=== PATIENT | male | born 1945 | race Caucasian/White ===

== ENCOUNTER 2018-08-27 17:43 | Observation (INO) ==
[2018-08-27] MEDS ORDERED: Aspirin 81 MG TAB.CHEW PO STA (18:08)
--- NOTE | 2018-08-27 18:28 | Emergency Department Note ---
START Narrative - START START: Patient seen and evaluated on arrival he is having having intermittent chest pains been going for a week. He has had a stent placed times one been several years ago. Pain seems to be with exertion. He has no pain currently. He does take aspirin. Were noted a cardiac workup on him and then he will be signed out to the evening ER physician Dr. Pena for further management disposition.
[2018-08-27 18:33] LABS: Basophils % 0.6 %; Eosinophils # 0.1 K/mcL (0.0-0.6); Eosinophils % 1.5 %; Hematocrit 42.2 % (37.5-50.1); Hemoglobin 14.3 g/dL (12.9-16.9); Immature Granulocytes % 0.3 % (0-4); Lymphocytes # 1.4 K/mcL (0.6-4.6); Lymphocytes % 21.6 %; Mean Corpuscular HGB Conc 33.9 g/dL (31.6-35.5); Mean Corpuscular Hemoglobin 29.4 pg (28.0-33.3); Mean Corpuscular Volume 86.8 fL (83.0-100.0); Mean Platelet Volume 9.6 fL (9.4-12.4); Monocytes # 0.9 K/mcL (0.0-1.3); Monocytes % 13.7 %; Platelet Count 232 K/mcL (140-400); Red Blood Count 4.86 M/mcL (4.19-5.50); Segmented Neutrophils % 62.3 %
[2018-08-27 18:47] LABS: Calcium 9.4 mg/dL (8.6-10.3); Potassium 3.9 mEq/L (3.5-5.1)
[2018-08-27 18:51] LABS: Troponin I 0.46 ng/mL (< 0.04)
--- NOTE | 2018-08-27 19:51 | Emergency Department Note ---
Disposition Clinical Impression: NSTEMI (non-ST elevated myocardial infarction) Chest pain Qualifiers: Chest pain type: unspecified Qualified Code(s): R07.9 - Chest pain, unspecified Disposition: Admitted As Inpatient Condition: Fair Referrals: Jet Ty MD [Primary Care Provider] - Forms: ED Satisfaction Letter Chest Pain HPI - General Chief Complaint: ED Chest Pain Stated Complaint: Chest pressure Time Seen by Provider: 08/27/18 18:07 Source: patient Mode of arrival: ambulatory Limitations: no limitations Vital Signs Reviewed: Yes Nursing Notes Reviewed: Yes - History of Present Illness HPI Narrative: 73-year-old male with known coronary artery disease status post stent proximally 7 years ago presents for evaluation of chest pain. Patient describes as chest tightness. Notes it to be occurring over the past week. Notes it to occur daily. Patient notes it to occur multiple times a day which prompted his ED visit today. Patient describes chest pain with exertion. Radiation down both arms. No nausea vomiting or diaphoresis. Does appear to resolve approximately 10 minutes upon rest. Patient denies abdominal pain. Denies any shortness of breath or cough. No fevers. Denies any blood in the stool or dark tarry stools. Patient also has history of hypertension and diabetes. Severity scale (1-10): 0 - Related Data Home Medications Medication Instructions Recorded Confirmed Aspirin 08/25/17 Lipitor 08/25/17 Nitroglycerin 08/25/17 Vitamin D 08/25/17 Zetia 08/25/17 Previous Rx's Medication Instructions Recorded Acetaminophen [Tylenol] 500 mg PO Q6HR PRN #20 tablet 08/25/17 Azithromycin [Azithromycin 6-Tab 250 mg PO PER PKG DI #6 tab 08/25/17 Pack] Benzonatate [Tessalon] 200 mg PO TID PRN #20 capsule 08/25/17 Allergies Allergy/AdvReac Type Severity Reaction Status Date / Time No Known Allergies Allergy Verified 08/25/17 14:46 All systems ED: reviewed and negative except as stated. Constitutional: Denies: fever Cardiovascular: Reports: chest pain Respiratory: Denies: cough, dyspnea Gastrointestinal: Denies: abdominal pain, nausea, vomiting Chest Pain PMH - Past Medical History Medical history: Reports: diabetes, hyperlipidemia Psychiatric history: Reports: no psych history - Social History Smoking Status: Never smoker Alcohol use: Reports: none Drug use: Reports: none Physical Exam - General Limitations: no limitations General appearance: alert, in no apparent distress - Head Head exam: atraumatic, normocephalic, normal inspection - Eye Eye exam: Present: normal appearance, PERRL, EOMI - ENT ENT exam: normal exam, mucous membranes moist - Neck Neck exam: Present: normal inspection, trachea midline - Chest Chest inspection: Present: normal inspection, symmetric chest wall rise - Respiratory Respiratory exam: Present: normal lung sounds bilaterally. Absent: respiratory distress - Cardiovascular Cardiovascular exam: Present: regular rate, normal rhythm. Absent: systolic murmur - Abdominal Exam Abdominal exam: Present: soft, Non-Tender - Extremities Exam Extremities exam: Present: normal inspection. Absent: pedal edema - Expanded Lower Extremity Exam Neurovascular/Tendon exam: Present: normal capillary refill - Back Exam Back exam: Present: normal inspection - Neurological Exam Neurological exam: Present: alert, oriented X3, CN II-XII intact - Skin Skin exam: Present: warm, dry, intact, normal color Course Course Narrative: Patient seen and examined. Patient's workup was started by the prior provider. Patient does present with concerning symptoms of unstable angina/in STEMI. Patient's troponin came back elevated. Patient denies any chest pain at time of examination. Given concerns for ACS patient was started on heparin as there is no contraindication. No concerns for PE or DVT. No concerns for aortic dissection. Patient's EKG shows no signs of ST elevation. - Reevaluation(s) Reevaluation #1: Patient was made aware of his abnormal labs and recommended admission to the hospital for continued cardiopulmonary evaluation and treatment. Time: 20:01 - Consultations Consultation #1: Dyspnea with Dr. Major, cardiology and made aware the consult and the patient's NSTEMI admission. Time: 20:06 Vital Signs Temperature 98.2 F 08/27/18 17:53 Pulse Rate 96 08/27/18 17:53 Respiratory Rate 14 08/27/18 17:53 Blood Pressure 155/87 08/27/18 17:53 O2 Sat by Pulse Oximetry 98 08/27/18 17:53 Temperature 98.2 F 08/27/18 18:13 Pulse Rate 93 08/27/18 18:13 Respiratory Rate 16 08/27/18 18:13 Blood Pressure 148/85 08/27/18 18:13 O2 Sat by Pulse Oximetry 99 08/27/18 18:13 Oxygen Delivery Oxygen Delivery Room Air Chest Pain - MDM Narrative Medical decision making narrative: Patient presents for concerns of unstable angina/in STEMI. Patient's labs and workup initiated by the prior provider. - Lab Data Lab results reviewed: Yes I reviewed the patient's lab results. Result diagrams: 08/27/18 18:14 08/27/18 18:14 Lab Results 08/27/18 08/27/18 Range/Units 18:14 18:14 WBC 6.5 (4.3-11.1) K/mcL RBC 4.86 (4.19-5.50) M/mcL Hgb 14.3 (12.9-16.9) g/dL Hct 42.2 (37.5-50.1) % MCV 86.8 (83.0-100.0) fL MCH 29.4 (28.0-33.3) pg MCHC 33.9 (31.6-35.5) g/dL RDW 13.0 (11.5-14.5) % Plt Count 232 (140-400) K/mcL MPV 9.6 (9.4-12.4) fL Immature Gran % 0.3 (0-4) % Seg Neutrophils % 62.3 % Lymphocytes % 21.6 % Monocytes % 13.7 % Eosinophils % 1.5 % Basophils % 0.6 % Neutrophils # 4.0 (1.6-8.9) K/mcL Lymphocytes # 1.4 (0.6-4.6) K/mcL Monocytes # 0.9 (0.0-1.3) K/mcL Eosinophils # 0.1 (0.0-0.6) K/mcL Basophils # 0.0 (0.0-0.2) K/mcL Sodium 138 (136-145) mEq/L Potassium 3.9 (3.5-5.1) mEq/L Chloride 105 (98-107) mEq/L Carbon Dioxide 27 (23-29) mEq/L BUN 17 (8-23) mg/dL Creatinine 1.52 H (0.70-1.30) mg/dL Est GFR ( Amer) 55 L (> 60) Est GFR (Non-Af Amer) 45 L (> 60) BUN/Creatinine Ratio 11 (6-26) Glucose 240 H (70-105) mg/dL Calculated Osmolality 295 (280-300) Calcium 9.4 (8.6-10.3) mg/dL Troponin I 0.46 H* (< 0.04) ng/mL - Radiology Data Radiology results reviewed: Yes I reviewed the patient's radiology results. Chest X-Ray 08/27/18 18:05 IMPRESSION: No acute process. D/ / Dandre Ty MD / Dandre Ty MD Interpreting Provider: Dandre Ty MD - EKG Data EKG attestation: Yes I reviewed and interpreted this EKG. EKG shows normal: sinus rhythm Rate: normal Rhythm: NSR [place]/QRS: normal Q waves: v1 Interpretation: no acute changes, nonspecific ST-T wave changes Heart Score - Score History: Highly Suspicious EKG: Non Specific repolarisation Disturbance Age: Greater than 65 Risk Factors: Equal/Greater than 3 risk factor or history of atherosclerotic disease Troponin: Greater than 3x normal limit HEART Score Total: 9 S.B.A.Latricia - [email or web address] Situation: Demographics Background: Presenting Complaint Assessment: Vital Signs, Course and respsone to treatment, Patient/Family Expectation Recommendation: Barrier(s) to disposition, Recommendation based on pending studies, treatments, or consults S.B.A.Latricia Report Given to: Dr. Senia Benavidez Repor Time: 20:27
[2018-08-27] MEDS ORDERED: *HR* Heparin 5,000 UNIT/ML VIAL IVP ONE (19:58)
[2018-08-27] MEDS ORDERED: Nitroglycerin 0.4 MG TAB.SUBL SL PRN ×2 (19:58→21:04)
[2018-08-27] MEDS ORDERED: *HR* Heparin 5,000 UNIT/ML VIAL IVP PRN ×2 (19:58)
[2018-08-27] MEDS ORDERED: Heparin 25,000 UNIT/500 ML D5W 25,000 UNIT/500 ML BAG IVC SCH (20:00)
--- NOTE | 2018-08-27 20:19 | Emergency Department Note ---
Disposition Clinical Impression: NSTEMI (non-ST elevated myocardial infarction) Chest pain Qualifiers: Chest pain type: unspecified Qualified Code(s): R07.9 - Chest pain, unspecified Disposition: Admitted As Inpatient Condition: Fair Referrals: Jet Ty MD [Primary Care Provider] - Forms: ED Satisfaction Letter General Adult HPI - General Chief complaint: ED Chest Pain Stated complaint: Chest pressure Time Seen by Provider: 08/27/18 18:07 Source: patient Mode of arrival: ambulatory Limitations: no limitations Nursing Notes Reviewed: Yes Vital Signs Reviewed: Yes - History of Present Illness Pain Scale: 0 - Related Data Home Medications Medication Instructions Recorded Confirmed Aspirin 08/25/17 Lipitor 08/25/17 Nitroglycerin 08/25/17 Vitamin D 08/25/17 Zetia 08/25/17 Previous Rx's Medication Instructions Recorded Acetaminophen [Tylenol] 500 mg PO Q6HR PRN #20 tablet 08/25/17 Azithromycin [Azithromycin 6-Tab 250 mg PO PER PKG DI #6 tab 08/25/17 Pack] Benzonatate [Tessalon] 200 mg PO TID PRN #20 capsule 08/25/17 Allergies Allergy/AdvReac Type Severity Reaction Status Date / Time No Known Allergies Allergy Verified 08/25/17 14:46 Constitutional: Denies: fever Cardiovascular: Reports: chest pain Respiratory: Denies: cough, dyspnea Gastrointestinal: Denies: abdominal pain, nausea, vomiting Past Medical History - Past Medical History Medical history: Reports: diabetes, hyperlipidemia Psychiatric history: Reports: no psych history - Social History Smoking Status: Never smoker Smokeless Tobacco Status: No Alcohol use: Reports: none Drug use: Reports: none Physical Exam - General Limitations: no limitations General appearance: alert, in no apparent distress Course Vital Signs Temperature 98.2 F 08/27/18 17:53 Pulse Rate 96 08/27/18 17:53 Respiratory Rate 14 08/27/18 17:53 Blood Pressure 155/87 08/27/18 17:53 O2 Sat by Pulse Oximetry 98 08/27/18 17:53 Temperature 98.2 F 08/27/18 18:13 Pulse Rate 93 08/27/18 18:13 Respiratory Rate 16 08/27/18 18:13 Blood Pressure 148/85 08/27/18 18:13 O2 Sat by Pulse Oximetry 99 08/27/18 18:13 Oxygen Delivery Oxygen Delivery Room Air Medical Decision Making - Medical Records Medical records reviewed: Yes I reviewed the patient's medical records. - Lab Data Lab results reviewed: Yes I reviewed the patient's lab results. Result diagrams: 08/27/18 18:14 08/27/18 18:14 Lab Results 08/27/18 08/27/18 Range/Units 18:14 18:14 WBC 6.5 (4.3-11.1) K/mcL RBC 4.86 (4.19-5.50) M/mcL Hgb 14.3 (12.9-16.9) g/dL Hct 42.2 (37.5-50.1) % MCV 86.8 (83.0-100.0) fL MCH 29.4 (28.0-33.3) pg MCHC 33.9 (31.6-35.5) g/dL RDW 13.0 (11.5-14.5) % Plt Count 232 (140-400) K/mcL MPV 9.6 (9.4-12.4) fL Immature Gran % 0.3 (0-4) % Seg Neutrophils % 62.3 % Lymphocytes % 21.6 % Monocytes % 13.7 % Eosinophils % 1.5 % Basophils % 0.6 % Neutrophils # 4.0 (1.6-8.9) K/mcL Lymphocytes # 1.4 (0.6-4.6) K/mcL Monocytes # 0.9 (0.0-1.3) K/mcL Eosinophils # 0.1 (0.0-0.6) K/mcL Basophils # 0.0 (0.0-0.2) K/mcL Sodium 138 (136-145) mEq/L Potassium 3.9 (3.5-5.1) mEq/L Chloride 105 (98-107) mEq/L Carbon Dioxide 27 (23-29) mEq/L BUN 17 (8-23) mg/dL Creatinine 1.52 H (0.70-1.30) mg/dL Est GFR ( Amer) 55 L (> 60) Est GFR (Non-Af Amer) 45 L (> 60) BUN/Creatinine Ratio 11 (6-26) Glucose 240 H (70-105) mg/dL Calculated Osmolality 295 (280-300) Calcium 9.4 (8.6-10.3) mg/dL Troponin I 0.46 H* (< 0.04) ng/mL - Radiology Data Radiology results reviewed: Yes I reviewed the patient's radiology results. Chest X-Ray 08/27/18 18:05 IMPRESSION: No acute process. D/ / Dandre Ty MD / Dandre Ty MD Interpreting Provider: Dandre Ty MD - EKG Data EKG #1 EKG attestation: Yes I reviewed and interpreted this EKG. EKG results narrative: EKG shows a sinus rhythm with sinus arrhythmia. Ventricular rate 84. Minimal inferior ST segment depression. Nonspecific T-wave abnormality. Critical Care Time Critical Care Time: Yes Total Critical Care Time: 30 Attestation: Critical care performed: Time is exclusive of separately billable procedures. Time includes: direct patient care, patient reassessment, coordination of patient care, interpretation of data (laboratory data, radiology data, and respiratory data), review of patient's medical records, medical consultation and documentation of patient care. Procedures included in critical care time: Procedures excluded from critical care time: Attestation Statement - Attestation Attestation: I, Gilmer Pena MD, personally evaluated this patient and discussed their management with the resident physician. I reviewed the resident's note and agree with the documented findings, medical decision making, and plan of care. 73-year-old male presents to the emergency department with a complaint of intermittent chest tightness over the past week. He denies actual pain and just describes it as a tightness across his chest. This occurs with exertion and is relieved with rest. When he has a tightness that radiates down both arms. No shortness of breath. No diaphoresis. No nausea or vomiting. Patient has a history of a coronary artery stent about 7 years ago. No chest pain at present. On examination patient is a well-developed well-nourished well-appearing elderly male in no acute distress. He is alert and oriented 3. There is no cyanosis or diaphoresis. Chest is nontender to palpation. Breath sounds are clear and equal bilaterally. Heart mildly irregular. Abdomen soft and nontender with normal bowel sounds. No pedal edema. EKG shows a sinus rhythm with sinus arrhythmia with ventricular rate of 84. Minimal inferior ST depression. Nonspecific T-wave abnormality. Chest x-ray negative. Labs reviewed. Troponin 0.46. Patient was started on heparin infusion. Dr. Lisa discussed the patient with the phthalic acid purifier ux information architect, Dr. Major. The hospitalist, Dr. Rojas, was consulted and accepted admission of the patient.
[2018-08-27 20:55] LABS: Heparin anti-factor XA UFH 0.04 IU/mL (0.30-0.70); Prothrombin Time 11.2 Seconds (9.4-12.1)
--- NOTE | 2018-08-27 23:21 | Internal Med History&Physical ---
Date of Encounter: 08/27/18 Time of Encounter: 23:19 Internal Medicine - H&P: HPI Chief complaint: chest tightness Admitted From: Home Plans for Post Hospital Care: Home History of present illness: Philipp Garcia is a 73-year-old male with a history of coronary artery disease and had stent placement in 2011, hypertension and diet-controlled diabetes who presents emergency room complaining of increasing chest tightness and dyspnea on exertion with mild to moderate efforts over the past week. He states that it has been increasing in frequency which prompted him to seek medical attention. In the ER he was seen clinically and hemodynamically stable. EKG was not acutely ischemic. He was given loading dose of aspirin and subsequently labs showed a troponin of 0.46; we do not have prior studies on him . Cardiology was consulted and he was started on heparin drip. On my assessment he states he does not have chest pain or tightness at this time and he feels comfortable. He does state that if he were to require heart cath he would prefer to go to the original workday financials consultant with performed his first one. Past Med Surg Social Fam HX - Past Medical History Medical history: diabetes, hyperlipidemia Psychiatric history: no psych history - Past Surgical History Additional surgical history: 2011 cardiac stent placed - Social History Smoking Status: Never smoker Smokeless Tobacco Status: No Alcohol use: none Drug use: none Internal Medicine - H&P: Meds Acetaminophen [Tylenol] 500 mg PO Q6HR PRN #20 tablet 08/25/17 [Rx] Aspirin 81 mg PO DAILY 08/25/17 [History] Lipitor 80 mg PO HS 08/25/17 [History] Nitroglycerin 0.4 mg SL PRN PRN 08/25/17 [History] Vitamin D 2,000 mg PO DAILY 08/25/17 [History] Zetia 10 mg PO DAILY 08/25/17 [History] Sodium Chloride 5% OPTH Oint [[id number]-[id number]] 3.5 gm BOTH EYES BID 08/27/18 [History] Allergy/AdvReac Type Severity Reaction Status Date / Time No Known Allergies Allergy Verified 08/25/17 14:46 All Systems PM: A 10-system review of systems was performed and is negative for pertinent findings except as documented above in the HPI. Family history reviewed and found noncontributory. - Constitutional Vitals: Temp Pulse Resp BP Pulse Ox 98.7 F 80 16 158/112 98 08/27/18 22:07 08/27/18 22:07 08/27/18 22:07 08/27/18 22:07 08/27/18 22:07 Exam: Vitals: Reviewed General: Well developed white male sitting up in bed in no acute distress. Skin: Warm and supple. HEENT: Moist mucous membranes. No conjunctivae pallor. Neck: No lymphadenopathy. No JVD. No carotid bruits. No palpable thyroid. Chest: Normal thoracic expansion. Normal breath sounds. Clear to auscultation. Heart: Normal S1 & S2; rhythmic. No rubs or murmurs. Abdomen: Non-distended, soft and non-tender to palpation. No peritoneal reactio n. Extremities: No clubbing, cyanosis or edema. No calf tenderness. Normal distal pulses. Neurological: Awake, alert and oriented to person, place and time. No focal deficits. Psych: Affect appropriate. Internal Med - H&P Results - Labs CBC & Chem 7: 08/27/18 18:14 08/27/18 18:14 Labs: Short CBC 08/27/18 Range/Units 18:14 WBC 6.5 (4.3-11.1) K/mcL Hgb 14.3 (12.9-16.9) g/dL Hct 42.2 (37.5-50.1) % Plt Count 232 (140-400) K/mcL Neutrophils # 4.0 (1.6-8.9) K/mcL BMP 08/27/18 18:14 Sodium 138 Potassium 3.9 Chloride 105 Carbon Dioxide 27 BUN 17 Creatinine 1.52 H Glucose 240 H Calcium 9.4 Cardiac Enzymes 08/27/18 Range/Units 18:14 Troponin I 0.46 H* (< 0.04) ng/mL - Impressions ITS Impressions Chest X-Ray 08/27/18 18:05 IMPRESSION: No acute process. D/ / Dandre Ty MD / Dandre Ty MD Interpreting Provider: Dandre Ty MD - Assessment and plan (1) NSTEMI (non-ST elevated myocardial infarction) Current Visit: Yes Status: Acute Assessment and plan: Patient presenting with recent chest tightness and dyspnea on exertion and is relieved with rest. The increasing frequency and intensity is concerning for unstable angina. Seen to have an elevated troponin however we are unsure what his baseline is. We shall continue to trend these enzymes and monitor him cli nically. Obtain an echo in the morning. Cardiology consultation requested. (2) CAD (coronary artery disease) Current Visit: Yes Status: Acute Assessment and plan: Will continue antiplatelet and high intensity statin. Further assessment as above. Qualifiers: Coronary Disease-Associated Artery/Lesion type: [place] artery [place] vs. transplanted heart: [place] heart Associated angina: with stable angina Qualified Code(s): I25.118 - Atherosclerotic heart disease of [place] coronary artery with other forms of angina pectoris (3) HTN (hypertension) Current Visit: Yes Status: Acute Assessment and plan: Resume home medications. Currently well controlled. Qualifiers: Hypertension type: essential hypertension Qualified Code(s): I10 - Essential (primary) hypertension (4) Diabetes Current Visit: Yes Status: Acute Assessment and plan: States he is diet controlled now. Will check A1C. Qualifiers: Diabetes mellitus type: type 2 Diabetes mellitus ocean transportation intermediary insulin use: without nursing home use Diabetes mellitus complication status: without complication Qualified Code(s): E11.9 - Type 2 diabetes mellitus without complications - Time Spent With Patient Total time spent is greater than 50% in coordination of care (as documented) at patient's floor/unit and/or counseling patient: Greater than 35 minutes
[2018-08-28 00:50] LABS: Chol/HDL Ratio 1.9 (0-4.9)
[2018-08-28 01:42] LABS: Estimated Average Glucose 160 mg/dl; Hemoglobin A1C 7.2 %
[2018-08-28 06:56] LABS: Basophils % 0.8 %; Eosinophils # 0.1 K/mcL (0.0-0.6); Eosinophils % 1.4 %; Hematocrit 39.2 % (37.5-50.1); Hemoglobin 13.3 g/dL (12.9-16.9); Immature Granulocytes % 0.4 % (0-4); Lymphocytes # 1.5 K/mcL (0.6-4.6); Lymphocytes % 28.3 %; Mean Corpuscular HGB Conc 33.9 g/dL (31.6-35.5); Mean Corpuscular Hemoglobin 29.5 pg (28.0-33.3); Mean Corpuscular Volume 86.9 fL (83.0-100.0); Mean Platelet Volume 9.8 fL (9.4-12.4); Monocytes # 0.8 K/mcL (0.0-1.3); Monocytes % 14.5 %; Neutrophils # 2.8 K/mcL (1.6-8.9); Platelet Count 204 K/mcL (140-400); Red Blood Count 4.51 M/mcL (4.19-5.50); Segmented Neutrophils % 54.6 %
[2018-08-28 07:10] LABS: BUN/Creatinine Ratio 12 (6-26); Blood Urea Nitrogen 16 mg/dL (8-23); Calcium 9.2 mg/dL (8.6-10.3); Carbon Dioxide 28 mEq/L (23-29); Chloride 108 mEq/L (98-107); Glucose 141 mg/dL (70-105); Osmolality,Calculated 296 (280-300); Potassium 3.7 mEq/L (3.5-5.1); Sodium 141 mEq/L (136-145); eGFR For Non-African Americans 52 (> 60)
[2018-08-28 07:29] VITALS: BP 128/77
[2018-08-28] MEDS ORDERED: Cholecalciferol (D-3) 1,000 UNIT TABLET PO SCH (09:00)
[2018-08-28] MEDS ORDERED: Sodium Chloride 5% OPTH 3.5 GM TUBE BOTH EYES SCH (09:00)
[2018-08-28] MEDS ORDERED: Aspirin Enteric Coated 81 MG Tablet PO SCH (09:00)
--- NOTE | 2018-08-28 11:31 | Cardiology Consult Note ---
Date of Encounter: 08/28/18 Time of Encounter: 11:16 Assessment and Plan (1) NSTEMI (non-ST elevated myocardial infarction) Current Visit: Yes Status: Acute Pt currently chest pain free, EKG not acute, cardiac enzemes trending up, consistent with NSTEMI. Discussed options, risks, benefits LHC/poss, pt elects to proceed, discussed pts preference to transfer to [facility] under the care of his attending regional vice president life sales, Dr. Claros, discussed with Dr. Claros who is willing to accept transfer. Dr. Claros will contact bed management at [facility], expect transfer later today. Will add beta blockade, start Brillinta (2) HTN (hypertension) Current Visit: Yes Status: Acute Adequate control on current meds, continue same, monitor with the addition of Coreg. 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 Qualifiers: Coronary Disease-Associated Artery/Lesion type: [place] artery [place] vs. transplanted heart: [place] heart Associated angina: with stable angina Qualified Code(s): I25.118 - Atherosclerotic heart disease of [place] coronary artery with other forms of angina pectoris Discussion w patient/family: The assessment and plan as outlined above was discussed with the patient and/or family members who expressed understanding and agreement. All questions were answered. Thank you for involving us in the care of your patient. Please call with any questions. History of Present Illness Consult date: 08/28/18 Requesting physician: Steve Sanders Consult reason: Chest pain Chief complaint: Chest pain History of present illness: Mr. Garcia is a 73 year old male who presented to ER with complaints of chest pain on and off over last three days,. Pt reports first event was at rest, mid sternal chest pressure, 6/10, associated with mild shortness of breath, pain increasing over several minutes, radiated into both shoulders, then resolving slowly. Pt reports similar chest pain has reoccurred over last several days, up to three times a day, usually provoked by exertion, but occurred at rest and lasted over thirty minutes last PM which prompted his evaluation in the ER. He has previous hx of CAD, was evaluated for irregular heart beats approximately seven years ago, did not have chest pain, found to have significant CAD with stress imaging, underwent PCI with [facility] in unknown vessel, follows with Dr. Tim Claros, last evaluated in 08/08, no active symptoms at that time. Pt is resting comfortably, pain free at present. Past Med Surg Social Fam HX - Past Medical History Medical history: diabetes, hyperlipidemia Psychiatric history: no psych history - Past Surgical History Additional surgical history: 2012 cardiac stent placed - Social History Smoking Status: Never smoker Smokeless Tobacco Status: No Alcohol use: none Drug use: none Medications and Allergies Acetaminophen [Tylenol] 500 mg PO Q6HR PRN 08/28/18 [History] Aspirin [Adult Aspirin] 81 mg PO DAILY 08/28/18 [History] Atorvastatin Calcium 80 mg PO QPM 08/28/18 [History] Ergocalciferol (VITAMIN D2) [Vitamin D2] 2,000 unit PO DAILY 08/28/18 [History] Ezetimibe 10 mg PO DAILY 08/28/18 [History] Nitroglycerin [Nitrostat] 0.4 mg SL Q5M PRN 08/28/18 [History] Allergy/AdvReac Type Severity Reaction Status Date / Time No Known Allergies Allergy Verified 08/25/17 14:46 All Systems Review: The remainder of the systems were reviewed and are negative - Cardiovascular Cardiovascular: as per HPI Physical Examination Vital Signs, Last 4 Hours Temp Pulse Resp BP Pulse Ox 08/28/18 08:09 97 08/28/18 07:24 98.1 F 71 17 128/77 97 General: Conversant HEENT: Atraumatic, Normocephaly, Mucus Membranes Moist Neck: No JVD Cardiac: Reg Rate and Rhythm, Normal S1 and S2, No Murmur Lungs: Normal Breath Sounds, No Wheeze, Rales, Rhonchi Neuro: Alert and responsive, No focal deficits noted Abdomen: Soft, Non-Tender Skin: No rashes noted on visualized skin Musculoskeletal: No Chest Wall Tenderness Extremities: No Clubbing, No Cyanosis, No Edema, Normal Pulses Results 08/28/18 05:56 08/28/18 05:56 Lab Results 08/27/18 08/27/18 08/27/18 18:14 18:14 20:21 WBC 6.5 Hgb 14.3 Hct 42.2 Plt Count 232 INR 1.0 Sodium 138 Potassium 3.9 Chloride 105 Carbon Dioxide 27 BUN 17 Creatinine 1.52 H Glucose 240 H Calcium 9.4 Troponin I 0.46 H* 08/28/18 08/28/18 08/28/18 00:22 05:56 05:56 WBC 5.2 Hgb 13.3 Hct 39.2 Plt Count 204 INR Sodium 141 Potassium 3.7 Chloride 108 H Carbon Dioxide 28 BUN 16 Creatinine 1.35 H Glucose 141 H Calcium 9.2 Troponin I 0.52 H* 08/28/18 05:56 WBC Hgb Hct Plt Count INR Sodium Potassium Chloride Carbon Dioxide BUN Creatinine Glucose Calcium Troponin I 0.52 H* Consult Discharge Plan - Plan Referrals: Jet Ty MD [Primary Care Provider] -
--- NOTE | 2018-08-28 12:23 | Discharge Summary ---
Orders not resulted at time of discharge: Pending orders 08/27/18 17:57 EKG [ECG 12 lead ECG] [ECG] Stat 08/27/18 21:05 EV echocardiogram Routine 08/28/18 01:03 EKG [ECG 12 lead ECG] [ECG] Routine 08/28/18 01:07 EKG [ECG 12 lead ECG] [ECG] Stat Date of Encounter: 08/28/18 Time of Encounter: 12:19 - Discharge Diagnosis (1) NSTEMI (non-ST elevated myocardial infarction) Priority: Primary Status: Acute (2) CAD (coronary artery disease) Priority: Primary Status: Chronic Qualifiers: Coronary Disease-Associated Artery/Lesion type: [place] artery [place] vs. 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 Garcia is a 73 year old male with history of coronary disease who presented with chest pain that was typical of cardiac pain. Patient was noted to have elevated troponins. During his hospitalization he was chest pain-free. He was placed on heparin drip for an NSTEMI and cardiology was consulted. Cardiology evaluated the patient who recommended left heart catheterization. This was discussed with the patient who agreed to proceed but would prefer to have this done by his regular merchandising professor at [facility]. Cardiology spoke with the patient's primary merchandising professor who agreed to accept the patient for transfer. At the time of transfer to [facility] patient was stable with no complaints. Vital signs were stable, patient was chest pain-free. Per cardiology recommendations patient will be given beta mis and Brillinta. Patient will be transferred in stable condition. Discharge discussed with: patient, cyber security consultant - Time Spent with Patient Total time spent providing and/or coordinating discharge services: Greater than 30 minutes (35) - Discharge Medications Home Medications: Acetaminophen [Tylenol] 500 mg PO Q6HR PRN 08/28/18 [History] Aspirin [Adult Aspirin] 81 mg PO DAILY 08/28/18 [History] Atorvastatin Calcium 80 mg PO QPM 08/28/18 [History] Ergocalciferol (VITAMIN D2) [Vitamin D2] 2,000 unit PO DAILY 08/28/18 [History] Ezetimibe 10 mg PO DAILY 08/28/18 [History] Nitroglycerin [Nitrostat] 0.4 mg SL Q5M PRN 08/28/18 [History] Allergies/Adverse Reactions: Allergy/AdvReac Type Severity Reaction Status Date / Time No Known Allergies Allergy Verified 08/25/17 14:46 Date of admission: 08/27/18 21:14 Primary care physician: Jet Ty MD Consults: 08/27/18 20:05 Consult to Cardiology [CONS] Stat Comment: Consulting Provider: Cardiology Tabitha Reason for Consult: nstemi Call Completed: Yes Discharging clinician: Steve Sanders Anticipated date of discharge: 08/28/18 - Constitutional Vitals: Temp Pulse Resp BP Pulse Ox 98.1 F 71 17 128/77 97 08/28/18 07:24 08/28/18 07:24 08/28/18 07:24 08/28/18 07:24 08/28/18 08:09 General appearance: Present: A&O X 3, pleasant, no acute distress Exam: . - ENT ENT exam: Present: mucous membranes moist - Respiratory Respiratory exam: Present: CTAB. Absent: rales, rhonchi, wheezes - Cardiovascular Cardiovascular exam: Present: RRR. Absent: gallop, irregular rhythm, rubs, systolic murmur, tachycardia - GI/Abdominal GI/Abdominal exam: Present: normal bowel sounds, soft. Absent: distended, tenderness - Extremities Exam Extremities exam: Present: warm. Absent: pedal edema, tenderness - Neurological Exam Neurological exam: Present: alert, CN II-XII intact, oriented X3, no focal deficits - Skin Skin exam: Present: dry, intact, warm - Patient Status Disposition: Transfer Short-Term Hosp Condition: Fair Functional capacity at discharge: bed bound Overall status at discharge: patient is progressing back to baseline - Discharge Instructions Follow Up With: Jet Ty MD [Primary Care Provider] - (1 week) - Diet and Activity Activity: increase activity as tolerated Diet: other (NPO)
[2018-08-28] MEDS ORDERED: *HR* Ticagrelor 90 MG TABLET PO ONE (12:28)
--- NOTE | 2018-08-28 12:29 | Event Note ---
Date of Encounter: 08/28/18 Time of Encounter: 12:30 - Cardiology Event Note Discussed with Dr. Major, transfer pending to outside facility for catheterization. Note reviewed, will add beta mis and start Brilinta. Discuss with primary service.
[2018-08-28] MEDS ORDERED: *HR* Ticagrelor 90 MG TABLET PO SCH (21:00)
--- NOTE | 2018-08-29 15:01 | Electrocardiograph Report ---
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
--- NOTE | 2018-08-30 17:24 | Electrocardiograph Report ---
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
== END 2018-08-28 14:27 | disposition short-term general hospital (02) ==
LOC: 2SOUTHHOLD 17:43 → EMEROOARM 17:43 → SUATTDRO 21:14 → 2SOUTHHOLD 21:40
PROVIDERS: ADMIT Internal Medicine; ATTEND Internal Medicine